=== PATIENT | male | born 1945 | race Caucasian/White ===

== ENCOUNTER 2018-03-09 10:36 | Outpatient (CLI) | payer MEDICARE, OTHER ==
[2018-03-09 18:55] LABS: EOSINOPHILS # (AUTO) 0.2 10^3/uL (0.0-0.7); EOSINOPHILS % (AUTO) 4.5 %; HGB - HEMOGLOBIN 13.8 g/dL (14.0-18.0); LYMPHOCYTES # (AUTO) 1.2 10^3/uL (1.5-3.5); LYMPHOCYTES % (AUTO) 32.5 %; MEAN CORPUSCULAR HEMOGLOBIN 32.2 pg (27.0-31.0); MEAN CORPUSCULAR HGB CONC 33.6 g/dL (32.0-36.0); MEAN CORPUSCULAR VOLUME 95.8 fL (80.0-94.0); MEAN PLATELET VOLUME 8.3 fL (7.4-11.4); MONOCYTES # (AUTO) 0.3 10^3/uL (0.0-1.0); MONOCYTES % (AUTO) 8.9 %; NEUTROPHILS % (AUTO) 53.1 %; PLT - PLATELET COUNT 187 10^3/uL (130-450); RED BLOOD COUNT 4.29 10^6/uL (4.70-6.10); RED CELL DISTRIBUTION WIDTH 13.3 % (12.0-15.0); WHITE BLOOD COUNT 3.8 x10^3/uL (4.8-10.8)
[2018-03-09 19:17] LABS: PSA FREE 0.22 ng/mL (0.16-2.81)
[2018-03-09 19:18] LABS: PSA TOTAL 3.55 ng/mL (0.000-2.000)
[2018-03-09 19:19] LABS: THYROID STIMULATING HORMONE 5.73 uIU/mL (0.34-5.60)
[2018-03-09 19:23] LABS: FREE T4 (FREE THYROXINE) 0.6 ng/dL (0.58-1.64)
[2018-03-09 19:30] LABS: ALBUMIN/GLOBULIN RATIO 1.5 (1.0-2.2); ALKALINE PHOSPHATASE 67 IU/L (42-121); ALT ALANINE AMINOTRANSFERASE 20 IU/L (10-60); AST ASPARTATE AMINOTRANSFERASE 28 IU/L (10-42); BILIRUBIN,TOTAL 0.6 mg/dL (0.2-1.0); BUN - BLOOD UREA NITROGEN 16 mg/dL (6-20); CALCIUM 8.9 mg/dL (8.5-10.3); CARBON DIOXIDE - CO2 26 mmol/L (21-32); CHLORIDE 108 mmol/L (101-111); CHOL/HDL RATIO 5.9 (<5.0); CHOLESTEROL 234 mg/dL; GFR - MDRD 73 (>89); GLUCOSE 88 mg/dL (70-100); HDL CHOLESTEROL 40 mg/dL; LDL CHOLESTEROL,CALCULATED 170 mg/dL; LDL/HDL RATIO 4.3 (<3.6); SODIUM 139 mmol/L (135-145); TOTAL PROTEIN 6.6 g/dL (6.7-8.2); VLDL CHOLESTEROL 24 mg/dL
== END 2018-03-09 10:37 | disposition home or self-care (01) ==
LOC: LAB.WCP 10:36
PROVIDERS: ATTEND Family Medicine
DX: E78.5 Hyperlipidemia, unspecified (principal); R41.3 Other amnesia; R03.0 Elevated blood-pressure reading, without diagnosis of hypertension; R97.20 Elevated prostate specific antigen [PSA]
CPT/HCPCS: 36415; 80053; 80061; 81599; 82607; 83721; 83921; 84154; 84439; 84443; 85025; 86592

== ENCOUNTER 2018-09-02 08:00 | Outpatient (CLI) | payer MEDICARE, OTHER ==
[2018-09-02 13:29] LABS: ALBUMIN 4.4 g/dL (3.2-5.5); ALBUMIN/GLOBULIN RATIO 1.6 (1.0-2.2); ALKALINE PHOSPHATASE 75 IU/L (42-121); ALT ALANINE AMINOTRANSFERASE 23 IU/L (10-60); AST ASPARTATE AMINOTRANSFERASE 27 IU/L (10-42); BILIRUBIN,TOTAL 0.9 mg/dL (0.2-1.0); BUN - BLOOD UREA NITROGEN 24 mg/dL (6-20); CARBON DIOXIDE - CO2 26 mmol/L (21-32); CHLORIDE 103 mmol/L (101-111); CHOL/HDL RATIO 6.2 (<5.0); CHOLESTEROL 217 mg/dL; CREATININE 0.9 mg/dL (0.6-1.2); GFR - MDRD 82 (>89); GLUCOSE 99 mg/dL (70-100); HDL CHOLESTEROL 35 mg/dL; LDL CHOLESTEROL,CALCULATED 138 mg/dL; LDL/HDL RATIO 3.9 (<3.6); SODIUM 136 mmol/L (135-145); TOTAL PROTEIN 7.2 g/dL (6.7-8.2); VLDL CHOLESTEROL 44 mg/dL
[2018-09-02 13:31] LABS: PSA FREE 0.33 ng/mL (0.16-2.81)
[2018-09-02 13:32] LABS: PSA TOTAL 4.66 ng/mL (0.000-2.000)
== END 2018-09-02 23:59 | disposition home or self-care (01) ==
LOC: LAB.WCP 08:00
PROVIDERS: ATTEND Family Medicine
DX: R03.0 Elevated blood-pressure reading, without diagnosis of hypertension (principal); R97.20 Elevated prostate specific antigen [PSA]; E78.5 Hyperlipidemia, unspecified
CPT/HCPCS: 36415; 80053; 80061; 83721; 84153; 84154; 84443

== ENCOUNTER 2019-01-26 08:00 | Outpatient (CLI) | payer MEDICARE, OTHER ==
[2019-01-26 12:57] LABS: PSA FREE 0.31 ng/mL (0.16-2.81)
[2019-01-26 12:58] LABS: PSA TOTAL 5.52 ng/mL (0.000-2.000)
== END 2019-01-26 23:59 | disposition home or self-care (01) ==
LOC: LAB.WCP 08:00
PROVIDERS: ATTEND Urology
DX: R97.20 Elevated prostate specific antigen [PSA] (principal)
CPT/HCPCS: 36415; 84153; 84154

== ENCOUNTER 2019-02-24 08:00 | Outpatient (CLI) | payer MEDICARE, OTHER ==
[2019-02-24 18:56] LABS: ALBUMIN 4.2 g/dL (3.2-5.5); ALBUMIN/GLOBULIN RATIO 1.8 (1.0-2.2); BILIRUBIN,TOTAL 0.8 mg/dL (0.2-1.0); CALCIUM 8.9 mg/dL (8.5-10.3); TOTAL PROTEIN 6.6 g/dL (6.7-8.2)
== END 2019-02-24 08:01 | disposition home or self-care (01) ==
LOC: LAB.WCP 08:00
PROVIDERS: ATTEND Family Medicine
DX: E78.5 Hyperlipidemia, unspecified (principal); R03.0 Elevated blood-pressure reading, without diagnosis of hypertension
CPT/HCPCS: 36415; 80053

== ENCOUNTER 2020-02-01 08:47 | Outpatient (CLI) | payer MEDICARE, OTHER ==
[2020-02-01 12:39] LABS: EOSINOPHILS # (AUTO) 0.1 10^3/uL (0.0-0.7); EOSINOPHILS % (AUTO) 2.3 %; LYMPHOCYTES # (AUTO) 1.2 10^3/uL (1.5-3.5); LYMPHOCYTES % (AUTO) 29.2 %; MEAN CORPUSCULAR VOLUME 96.8 fL (80.0-94.0); MEAN PLATELET VOLUME 10.5 fL (7.4-11.4); MONOCYTES # (AUTO) 0.4 10^3/uL (0.0-1.0); MONOCYTES % (AUTO) 8.9 %; NEUTROPHILS # (AUTO) 2.3 10^3/uL (1.5-6.6); NEUTROPHILS % (AUTO) 58.1 %; PLT - PLATELET COUNT 169 10^3/uL (130-450); RED BLOOD COUNT 4.38 10^6/uL (4.70-6.10); RED CELL DISTRIBUTION WIDTH 13.1 % (12.0-15.0); WHITE BLOOD COUNT 3.9 x10^3/uL (4.8-10.8)
[2020-02-01 13:14] LABS: ALBUMIN 4.2 g/dL (3.2-5.5); ALBUMIN/GLOBULIN RATIO 1.4 (1.0-2.2); ALKALINE PHOSPHATASE 65 IU/L (42-121); ALT ALANINE AMINOTRANSFERASE 25 IU/L (10-60); AST ASPARTATE AMINOTRANSFERASE 29 IU/L (10-42); BILIRUBIN,TOTAL 0.7 mg/dL (0.2-1.0); BUN - BLOOD UREA NITROGEN 29 mg/dL (6-20); CALCIUM 9.3 mg/dL (8.5-10.3); CARBON DIOXIDE - CO2 29 mmol/L (21-32); CHLORIDE 104 mmol/L (101-111); CHOL/HDL RATIO 4.1 (<5.0); CHOLESTEROL 169 mg/dL; GLUCOSE 95 mg/dL (70-100); HDL CHOLESTEROL 41 mg/dL; LDL CHOLESTEROL,CALCULATED 106 mg/dL; LDL/HDL RATIO 2.6 (<3.6); SODIUM 141 mmol/L (135-145); TOTAL PROTEIN 7.1 g/dL (6.7-8.2); VLDL CHOLESTEROL 22 mg/dL
== END 2020-02-01 23:59 | disposition home or self-care (01) ==
LOC: LAB.WCP 08:47
PROVIDERS: ATTEND Family Medicine
DX: E78.5 Hyperlipidemia, unspecified (principal); R03.0 Elevated blood-pressure reading, without diagnosis of hypertension; R41.3 Other amnesia
CPT/HCPCS: 36415; 80053; 80061; 83721; 84443; 85025

== ENCOUNTER 2020-10-24 08:00 | Outpatient (CLI) | payer MEDICARE, OTHER ==
--- NOTE | 2020-10-24 11:00 | XRAY Report ---
PROCEDURE: Hand 2 View RT INDICATIONS: GANGLION CYST OF RIGHT HAND TECHNIQUE: 2 views of the hand(s) acquired. COMPARISON: None FINDINGS: Bones: No fractures or dislocations. Osteoarthritic changes are noted throughout the interphalangeal joints and first MCP joint. Subcortical radiolucencies are noted at first metacarpal head, third and fourth PIP joints and second DIP joint concerning for erosion. No suspicious bony lesions. Soft tissues: Mild soft tissue swelling around third and fourth PIP joints are seen. IMPRESSION: 1. No fracture or dislocation. Osteoarthritic changes throughout interphalangeal joints and first MCP joint as above. Erosion secondary to inflammatory arthropathy at first MCP joint, third and fourth P IP joints and second distal interphalangeal joint is suspected. 2. Mild soft tissue swelling surrounding third and fourth PIP joints. Reviewed by: Andre Delatorre MD on 10/24/2020 10:58 AM PDT Approved by: Andre Delatorre MD on 10/24/2020 10:58 AM PDT Station ID: [id number]
== END 2020-10-24 23:59 | disposition home or self-care (01) ==
LOC: DI.N 08:00
PROVIDERS: ATTEND Family Medicine
DX: M19.041 Primary osteoarthritis, right hand (principal)

== ENCOUNTER 2021-01-31 09:08 | Outpatient (CLI) | payer MEDICARE, OTHER ==
--- NOTE | 2021-01-31 10:17 | XRAY Report ---
PROCEDURE: Knee 3 View LT INDICATIONS: L KNEE PX TECHNIQUE: 3 views of the left knee(s) were acquired. COMPARISON: None. FINDINGS: Bones: No fractures or dislocations. Mild to moderate tricompartment osteoarthritis is seen most pro minent in medial femoral tibial compartment. Ill-defined sclerosis involving distal femoral shaft med ullary space seen likely represent areas of osteonecrosis. No suspicious bony lesions. Soft tissues: Moderate suprapatellar joint effusion is seen. No suspicious soft tissue calcifications . IMPRESSION: Mild to moderate tricompartmental osteoarthritis more prominent in medial femoral tibial compartment. Moderate joint effusion. No fracture or dislocation. Reviewed by: Andre Delatorre MD on 01/31/2021 10:16 AM PDT Approved by: Andre Delatorre MD on 01/31/2021 10:16 AM PDT Station ID: [id number]
== END 2021-01-31 09:09 | disposition home or self-care (01) ==
LOC: DI.N 09:08
PROVIDERS: ATTEND Family Medicine
DX: M17.12 Unilateral primary osteoarthritis, left knee (principal); M25.462 Effusion, left knee

== ENCOUNTER 2024-02-13 12:44 | Emergency (ER) | payer MEDICARE, OTHER ==
--- NOTE | 2024-02-13 12:49 | ED Physician Documentation ---
PD HPI NVD - Stated complaint Stated Complaint: PAIN W/ SWALLOWING - History obtained from History obtained from: Patient - History of Present Illness Timing - onset: Yesterday (has eggs for breakfast and felt some food stuck in esophagus that did not improve for 10-15 minutes and typicallly would improve in minute or so with sips of water. He induced vomiting with finger in throat and got some food up and felt better. Then started to eat chicken for lunch and sxs.) Timing - duration: Days (since yesterday morning, has had to vomiting saliva every hour or so, or any luqids he has attempted sipping.) Timing - details: Abrupt onset, Still present Similar symptoms before: No diagnosis (has had 6 months or more of intermittent food getting stuck for minute or two, improves with short time and sips of water. Occurs every few days or so, particularly with meats/etc.) Review of Systems Endocrine: reports: Weight gain. denies: Weight loss PD PAST MEDICAL HISTORY - Present Medications Home Medications: Ambulatory Orders Medication Instructions Recorded Confirmed Nitroglycerin [Nitrostat] 0.4 mg SL Q5MIN PRN #25 tablet 02/13/24 Pantoprazole [Protonix] 40 mg PO DAILY 30 Days #30 tablet 02/13/24 Sucralfate [Carafate] 1 gm PO ACHS 10 Days #400 ml 02/13/24 - Allergies Allergies/Adverse Reactions: Allergies Allergy/AdvReac Type Severity Reaction Status Date / Time No Known Drug Allergies Allergy Verified 02/13/24 12:47 PD ED PE NORMAL - Vitals Vital signs reviewed: Yes - General General: Alert and oriented X 3, No acute distress, Well developed/nourished - HEENT HEENT: Pharynx benign - Neck Neck: Supple, no meningeal sign, No adenopathy - Cardiac Cardiac: RRR, No murmur - Respiratory Respiratory: Clear bilaterally - Abdomen Abdomen: Soft, Non tender Results - Vitals Vitals: Vital Signs - 24 hr 02/13/24 02/13/24 12:47 15:20 Temperature 36.8 C Heart Rate 64 54 L Respiratory 16 18 Rate Blood Pressure 149/88 H 148/79 H O2 Saturation 99 97 Oxygen O2 Source Room air - Labs Labs: Laboratory Tests 02/13/24 02/13/24 13:18 13:18 WBC 3.4 L RBC 3.97 L Hgb 12.4 L Hct 37.9 L MCV 95.5 H MCH 31.2 H MCHC 32.7 RDW 12.8 Plt Count 169 MPV 9.9 Neut # (Auto) 2.3 Lymph # (Auto) 0.6 L Garfield # (Auto) 0.3 Eos # (Auto) 0.1 Baso # (Auto) 0.0 Absolute Nucleated RBC 0.00 Nucleated RBC % 0.0 Sodium 140 Potassium 4.2 Chloride 105 Carbon Dioxide 26 Anion Gap 9.0 BUN 22 H Creatinine 0.9 Estimated GFR (MDRD) 81 L Glucose 103 Calcium 9.7 Magnesium 1.8 Total Bilirubin 0.7 AST 24 ALT 18 Alkaline Phosphatase 87 Total Protein 6.8 Albumin 4.5 Globulin 2.3 Albumin/Globulin Ratio 2.0 Lipase 16 PD Medical Decision Making - ED course Complexity details: reviewed results, re-evaluated patient (gave IV fluids and meds for esophageal sapsm, with glucagon and nitro. Then soda to drink and led to resolution of the impaction. He is now swallowing liquids fully. Some discomfort. Talked with him about presume infalmmation currently and liquids/soft only today. Will want EGD outpt. ), considered differential (esophagel food impaction with history of achalasia and presume esophagitis/scarring from longer term GERD. However, would want to get EGD for eval. Currently to work on food impaction.), d/w patient Departure - Departure Disposition: 01 Home, Self Care Clinical Impression: Esophageal obstruction due to food impaction, Esophagitis Condition: Stable Record reviewed to determine appropriate education?: Yes Follow-Up: [facility] [Provider Group] Prescriptions: Nitroglycerin [Nitrostat] 0.4 mg SL Q5MIN PRN #25 tablet PRN Reason: Nausea / Vomiting Sucralfate [Carafate] 1 gm PO ACHS 10 Days #400 ml Pantoprazole [Protonix] 40 mg PO DAILY 30 Days #30 tablet Comments: Soft food only and mainly liquid diet today. Soft food over the next several days as well. Avoid meats and sticky rice and other things that can more easily get stuck. I presume he has some chronic irritation of the esophagus. Given the duration of your symptoms, it would be prudent to have a stomach endoscopy to evaluate and look for degrees of scarring and problems and ensure no other notable abnormality. Meanwhile presume a chronic reflux leading to scarring and irritation. I would suggest some regular proton pump inhibitor such as omeprazole or pantoprazole daily for the next month. For the next several days I would also use sacral fate 4 times daily to help coat the esophagus as it will be irritated with some swelling because of the food that was stuck there for a day. After that use it at night before bed. Do that for the next month or more. If you have another episodes where it seems obstructed/stuck like this., You can use nitroglycerin to see if that helps relax any spasming. Return to an ER if needed. Follow-up with surgical office here or down in your other home for outpatient surgical follow-up to discuss and plan an endoscopy. Forms: PCP List Discharge Date/Time: 02/13/24 15:20
[2024-02-13 13:26] LABS: BASOPHILS % (AUTO) 0.6 %; EOSINOPHILS # (AUTO) 0.1 10^3/uL (0.0-0.7); EOSINOPHILS % (AUTO) 3.3 %; HCT - HEMATOCRIT 37.9 % (42.0-52.0); HGB - HEMOGLOBIN 12.4 g/dL (14.0-18.0); LYMPHOCYTES # (AUTO) 0.6 10^3/uL (1.5-3.5); LYMPHOCYTES % (AUTO) 18.2 %; MEAN CORPUSCULAR HEMOGLOBIN 31.2 pg (27.0-31.0); MEAN CORPUSCULAR HGB CONC 32.7 g/dL (32.0-36.0); MEAN CORPUSCULAR VOLUME 95.5 fL (80.0-94.0); MEAN PLATELET VOLUME 9.9 fL (7.4-11.4); MONOCYTES # (AUTO) 0.3 10^3/uL (0.0-1.0); MONOCYTES % (AUTO) 10.1 %; NEUTROPHILS # (AUTO) 2.3 10^3/uL (1.5-6.6); NEUTROPHILS % (AUTO) 67.5 %; PLT - PLATELET COUNT 169 10^3/uL (130-450); RED BLOOD COUNT 3.97 10^6/uL (4.70-6.10); RED CELL DISTRIBUTION WIDTH 12.8 % (12.0-15.0); WHITE BLOOD COUNT 3.4 x10^3/uL (4.8-10.8)
[2024-02-13] MEDS: GLUCAGON 1 MG/ML VIAL IVP STA (13:35)
[2024-02-13] MEDS: SODIUM CHLORIDE 0.9% 1,000 ML IV STA (13:35)
[2024-02-13] MEDS: ONDANSETRON 4 MG/2 ML VIAL IVP STA (13:38)
[2024-02-13] MEDS: NITROGLYCERIN SL 0.4 MG TABLET SL STA (13:38)
[2024-02-13 13:51] LABS: ALBUMIN 4.5 g/dL (3.2-5.5); BILIRUBIN,TOTAL 0.7 mg/dL (0.2-1.0); CALCIUM 9.7 mg/dL (8.5-10.3); CREATININE 0.9 mg/dL (0.6-1.3); MAGNESIUM 1.8 mg/dL (1.7-2.3); POTASSIUM 4.2 mmol/L (3.5-4.5); TOTAL PROTEIN 6.8 g/dL (6.4-8.9)
[2024-02-13 15:23] VITALS: BP 148/79; O2SAT 97
== END 2024-02-13 15:20 | disposition home or self-care (01) ==
LOC: ED 12:44
DX: T18.128A Food in esophagus causing other injury, initial encounter (principal); W44.F3XA Food entering into or through a natural orifice, initial encounter; K20.90 Esophagitis, unspecified without bleeding; Z79.899 Other long term (current) drug therapy
CPT/HCPCS: 36415; 80053; 83690; 83735; 85025; 96374; 96375; 99283; 99284; A9270; J1610